=== PATIENT | male | born 1935 | race Caucasian/White ===

== ENCOUNTER → 2016-05-13 | Outpatient (CLI) | payer MEDICARE, BC ==
[~2016-05-13] VITALS: Ht 170.2 cm; Wt 89.2 kg
[~2016-05-13] MED LIST: ASPIRIN 81M81 MG/TA2 PO; CALCIUM + D 6001 TA1 PO; COMPLETE SENIOR1 TA1 PO; FLOMAX 0.40.4 MG/CAP PO; FOSAMAX70 MG/75 M PO; HCTZ 25MG TAB25 MG PO; ICAPS AREDS1 TAB PO; MULTIVITAMIN WI1 CAP PO; NEURONTIN300 MG/CAP PO; NORCO 325 MG-51 TAB PO; OCUVITE1 TA1 PO; OMEGA-31000 MG PO; OS-CAL 500 + D1 TAB PO; PERCOCET 325 MG1 TA2 PO; PLAVIX 75MG TAB75 MG PO; PRINIVIL20 MG PO; TOPROL XL 25MG25 MG PO; TOPROL XL100 MG PO; ULTRAM 50MG TAB50 MG PO; VITAMIN D1000 IU PO; ZESTRIL 10MG10 MG PO; ZESTRIL 20MG TA20 MG PO; ZOCOR 40MG40 MG PO; ZYLOPRIM 300MG300 MG PO
[2016-05-13 14:09] VITALS: BP 130/69; PULSE 59
[2016-05-13 15:01] VITALS: BP 154/67; PULSE 63
== END ==
LOC: COL.RAD 13:00
DX: M48.06 Spinal stenosis, lumbar region (principal); M47.896 Other spondylosis, lumbar region
CPT/HCPCS: J3301

== ENCOUNTER → 2016-07-18 | Outpatient (CLI) | payer MEDICARE, BC ==
[~2016-07-18] VITALS: Ht 170.2 cm; Wt 87.9 kg
[2016-07-18 13:13] VITALS: BP 147/88; PULSE 65
[2016-07-18 14:00] VITALS: BP 148/93; PULSE 68
== END ==
LOC: COL.RAD 07-16 13:00
DX: M48.06 Spinal stenosis, lumbar region (principal)
CPT/HCPCS: J3301

== ENCOUNTER 2016-10-11 00:25 | Emergency (ER) | payer MEDICARE, BC ==
[~2016-10-11] VITALS: Ht 170.2 cm; Wt 84.1 kg
[2016-10-11 00:26] VITALS: TEMP 98
[2016-10-11 04:15] VITALS: BP 134/88; PULSE 80
== END 2016-10-11 04:18 | disposition home or self-care (01) ==
LOC: COL.ER 00:25
DX: M23.92 Unspecified internal derangement of left knee (principal); I10 Essential (primary) hypertension; Z96.652 Presence of left artificial knee joint; Z79.02 Long term (current) use of antithrombotics/antiplatelets; X50.0XXA Overexertion from strenuous movement or load, initial encounter; Y92.009 Unspecified place in unspecified non-institutional (private) residence as the place of occurrence of the external cause
CPT/HCPCS: J3010; J7030

== ENCOUNTER → 2017-08-18 | Outpatient (CLI) | payer MEDICARE, BC | LOC: COL.RAD 07-29 10:00 | DX: M16.11 Unilateral primary osteoarthritis, right hip (principal) | CPT/HCPCS: J3301; Q9967 ==

== ENCOUNTER → 2017-09-15 | Outpatient (CLI) | payer MEDICARE, BC | LOC: COL.VAS 08:56 | DX: I51.9 Heart disease, unspecified (principal); I51.7 Cardiomegaly ==

== ENCOUNTER 2017-11-20 08:00 | Outpatient (RCR) | payer MEDICARE, BC | END 2018-02-03 | disposition home or self-care (01) | LOC: MKS.ESL.PT | DX: Z01.818 Encounter for other preprocedural examination (principal); M16.11 Unilateral primary osteoarthritis, right hip | CPT/HCPCS: G8978-GP; G8979-GP ==

== ENCOUNTER → 2018-07-09 | Outpatient (CLI) | payer MEDICARE, BC ==
[2018-07-09 09:09] LABS: BASO # 0.1 (0.0-0.2); BASO % 0.6 % (0.0-2.0); EOS # 0.2 (0.0-0.7); EOS % 2.3 % (0-4.0); GRAN # 5.8 (1.4-6.5); GRAN % 67.9 % (42.2-75.2); HEMATOCRIT 45.6 % (42.0-52.0); HEMOGLOBIN 15.3 g/dl (13.5-18.0); LYMPH # 1.8 (1.2-3.4); LYMPH % 20.6 % (20.0-51.0); MEAN CELL VOLUME 88 fl (80.0-100.0); MEAN CORPUSCULAR HEMOGLOBIN 30 pg (27.0-31.0); MEAN CORPUSCULAR HGB CONC 34 g/dl (33.0-37.0); MEAN PLATELET VOLUME 10.2 fl (7.4-10.4); MONO # 0.7 (0.1-0.6); MONO % 8.1 % (1.7-9.3); PLATELET COUNT 198 K/mm3 (130-400); RED BLOOD COUNT 5.17 M/mm3 (4.20-5.60); REDCELL DISTRIBUTION WIDTH-CV 13.6 % (11.5-14.5)
[2018-07-09 09:20] LABS: ALBUMIN 4.1 gm/dL (3.5-5.0); BILIRUBIN,TOTAL 1.1 mg/dL (0.0-1.0); CALCIUM 9.7 mg/dL (8.4-10.2); CREATININE, serum 1.05 (0.66-1.25); TOTAL PROTEIN 7.3 gm/dL (6.4-8.2)
[2018-07-09 09:50] LABS: PSA-TOTAL 19.3 ng/mL (0-4)
== END ==
LOC: COL.RAD 08:40
DX: Z01.812 Encounter for preprocedural laboratory examination (principal); C61 Malignant neoplasm of prostate; C44.92 Squamous cell carcinoma of skin, unspecified; C79.51 Secondary malignant neoplasm of bone; R97.21 Rising PSA following treatment for malignant neoplasm of prostate; M47.814 Spondylosis without myelopathy or radiculopathy, thoracic region; M51.36 Other intervertebral disc degeneration, lumbar region; M46.86 Other specified inflammatory spondylopathies, lumbar region; K57.30 Diverticulosis of large intestine without perforation or abscess without bleeding; Z96.653 Presence of artificial knee joint, bilateral; Z96.641 Presence of right artificial hip joint
CPT/HCPCS: A9503; G0103; Q9967

== ENCOUNTER 2019-09-22 10:30 | Outpatient (RCR) | payer MEDICARE, BC | END 2019-11-13 | disposition home or self-care (01) | LOC: MKS.ESL.PT | DX: G62.9 Polyneuropathy, unspecified (principal); M54.5 Low back pain ==

== ENCOUNTER → 2020-11-01 | Outpatient (CLI) | payer MEDICARE, BC | LOC: COL.RAD 09:20 | DX: C61 Malignant neoplasm of prostate (principal); C79.51 Secondary malignant neoplasm of bone; R91.8 Other nonspecific abnormal finding of lung field; Z96.649 Presence of unspecified artificial hip joint; Z96.659 Presence of unspecified artificial knee joint | CPT/HCPCS: A9503; Q9967 ==

== ENCOUNTER 2021-03-19 09:17 | Day surgery (SDC) | payer MEDICARE, BC ==
[~2021-03-19] VITALS: Ht 170.2 cm; Wt 81.8 kg
[2021-03-19] VITALS (7 sets, daily range): BP systolic 129–149; BP diastolic 78–101; PULSE 78–88
[2021-03-19] MEDS ORDERED: ALDACTONE 25MG25 M1 PO (09:44)
[2021-03-19] MEDS ORDERED: ELIQUIS 5MG PO (09:45)
[2021-03-19] MEDS ORDERED: XTANDI40 MG PO (09:47)
[2021-03-19 09:53] LABS: HEMATOCRIT 38.8 % (42.0-52.0); HEMOGLOBIN 12.9 g/dl (13.5-18.0); MEAN CELL VOLUME 86 fl (80.0-100.0); MEAN CORPUSCULAR HEMOGLOBIN 29 pg (27-31); MEAN CORPUSCULAR HGB CONC 33 g/dl (33.0-37.0); MEAN PLATELET VOLUME 10.3 fl (7.4-10.4); PLATELET COUNT 283 K/mm3 (130-400); RED BLOOD COUNT 4.53 M/mm3 (4.20-5.60); REDCELL DISTRIBUTION WIDTH-CV 14.1 % (11.5-14.5)
[2021-03-19 10:01] LABS: INR 1.4 (0.8-3.0); PROTHROMBIN TIME 15.8 SECONDS (9.7-12.8)
[2021-03-19 10:03] LABS: PARTIAL THROMBOPLASTIN TIME 46.1 SECONDS (26.0-37.0)
[2021-03-19 10:08] LABS: CALCIUM 9.1 mg/dL (8.4-10.2); CREATININE, serum 0.89 mg/dL (0.72-1.25)
[2021-03-19 10:29] LABS: THYROID STIMULATING HORMONE 2.417 uIU/mL (0.350-4.940)
--- NOTE | 2021-03-19 11:05 | NUR ---
PT resting comfortably after cardioversion. repeat ekg obtained. NS with 1st degree AVB. Pt is pwd. resp reg and unlabored. I reviewed poc as well as dc instructions with pt at this time.
[2021-03-19] MEDS ORDERED: MULTAQ400 MG PO (11:35)
== END 2021-03-19 18:15 | disposition home or self-care (01) ==
LOC: COL.CAR 09:17
PROVIDERS: Internal Medicine Cardiovascular Disease
DX: I48.91 Unspecified atrial fibrillation (principal); I11.0 Hypertensive heart disease with heart failure; I50.9 Heart failure, unspecified; I87.2 Venous insufficiency (chronic) (peripheral); G62.9 Polyneuropathy, unspecified; E78.5 Hyperlipidemia, unspecified; Z79.899 Other long term (current) drug therapy; Z86.73 Personal history of transient ischemic attack (TIA), and cerebral infarction without residual deficits; Z79.01 Long term (current) use of anticoagulants
CPT/HCPCS: J2704

== ENCOUNTER → 2021-07-16 | Outpatient (CLI) | payer MEDICARE, BC ==
[~2021-07-16] MED LIST changes: +ALDACTONE 25MG25 M1 PO; +ELIQUIS 5MG PO; +MULTAQ400 MG PO; +XTANDI40 MG PO
== END ==
LOC: COL.RAD 07-05 14:00
DX: M48.061 Spinal stenosis, lumbar region without neurogenic claudication (principal); G62.9 Polyneuropathy, unspecified; C79.51 Secondary malignant neoplasm of bone; M21.372 Foot drop, left foot; E11.69 Type 2 diabetes mellitus with other specified complication; Z86.73 Personal history of transient ischemic attack (TIA), and cerebral infarction without residual deficits